=== PATIENT | female | born 1985 | race Caucasian/White ===

== ENCOUNTER 2017-04-20 19:26 | Emergency (ER) | payer OTHER ==
[2017-04-20 19:26] VITALS: BMI 24.1
[2017-04-20 19:50] VITALS: O2SAT 100
--- NOTE | 2017-04-20 20:34 | C.PDOC ---
History Of Present Illness The patient presents to the ED for evaluation of nausea, vomiting and diarrhea which began around 2 days ago. Patient also complains of generalized weakness. She denies fever and chills at this time. Time Seen by Provider: 04/20/17 20:33 Chief Complaint (Nursing): GI Problem History Per: Patient History/Exam Limitations: no limitations Onset/Duration Of Symptoms: Days (2) Current Symptoms Are (Timing): Still Present Severity: Mild Pain Scale Rating Of: 2 Radiation Of Pain To:: None Quality Of Discomfort: denies: "Pain" Associated Symptoms: Nausea, Vomiting, Diarrhea. denies: Fever, Chills Exacerbating Factors: None Alleviating Factors: None Last Bowel Movement: Today Additional History Per: Patient Abnormal Vaginal Bleeding: No Past Medical History Reviewed: Historical Data, Nursing Documentation, Vital Signs Vital Signs: Last Vital Signs Temp 98.2 F 04/20/17 19:46 Pulse 81 04/20/17 19:46 Resp 18 04/20/17 19:46 BP 120/78 04/20/17 19:46 Pulse Ox 100 04/20/17 21:31 - Medical History PMH: Asthma Surgical History: No Surg Hx - [facility] Procedures MONITORING NOS (01/15/14) MANUAL ASSIST DELIV NEC (01/15/14) Family History: States: Unknown Family Hx - Social History Hx Alcohol Use: No Hx Substance Use: Yes - Immunization History Hx Tetanus Toxoid Vaccination: No Hx Influenza Vaccination: No Hx Pneumococcal Vaccination: No Review Of Systems Constitutional: Positive for: Weakness. Negative for: Fever, Chills Cardiovascular: Negative for: Chest Pain, Palpitations Respiratory: Negative for: Cough, Shortness of Breath Gastrointestinal: Positive for: Nausea, Vomiting, Diarrhea. Negative for: Constipation Genitourinary: Negative for: Dysuria, Frequency, Hematuria Skin: Negative for: Rash, Lesions, Jaundice, Bruising Psych: Negative for: Anxiety Physical Exam - Physical Exam Appears: Non-toxic, No Acute Distress Skin: Normal Color, Warm, Dry Head: Normacephalic Oral Mucosa: Dry Neck: Supple Chest: Symmetrical, No Deformity, No Tenderness Cardiovascular: Rhythm Regular, No Murmur Respiratory: No Rales, No Rhonchi, No Wheezing Gastrointestinal/Abdominal: Soft, Tenderness (mid-epigastric ), No Guarding, No Rebound Extremity: Normal ROM, Capillary Refill (less than 2 seconds ) Neurological/Psych: Oriented x3 Gait: Steady ED Course And Treatment - Laboratory Results Result Diagrams: 04/20/17 20:50 04/20/17 20:50 O2 Sat by Pulse Oximetry: 100 (on RA) Pulse Ox Interpretation: Normal Progress Note: Bloodwork and UA ordered. Pepcid IVP, Toradol IVP, Zofran IVP, Rocephin IVP, and Lactated Ringers Solution IV administered. Reevaluation Time: 22:07 Reassessment Condition: Improved Disposition Counseled Patient/Family Regarding: Studies Performed, Diagnosis, Need For Followup, Rx Given - Disposition Referrals: Estefania Ceja MD [Staff Provider] - Disposition: HOME/ ROUTINE Disposition Time: 20:34 Condition: FAIR Prescriptions: Nitrofurantoin Macrocrystals [Macrobid] 1 cap PO BID #14 cap Ondansetron ODT [Zofran ODT] 1 odt PO BID PRN #6 odt PRN Reason: Nausea/Vomiting Instructions: Abdominal Pain (ED), Urinary Tract Infection in Women (DC), Acute Nausea and Vomiting (ED) Forms: [employer] (Romanian) - Clinical Impression Clinical Impression: Abdominal pain, UTI (urinary tract infection), Nausea & vomiting - Scribe Statement The provider has reviewed the documentation as recorded by the Scribe (Fabiola Roman) Provider Attestation: All medical record entries made by the Scribe were at my direction and personally dictated by me. I have reviewed the chart and agree that the record accurately reflects my personal performance of the history, physical exam, medical decision making, and the department course for this patient. I have also personally directed, reviewed, and agree with the discharge instructions and disposition.
[2017-04-20] MEDS ORDERED: Lactated Ringer's 1,000 ML IV ONE (20:36)
[2017-04-20 20:42] LABS: RBC URINE 14 /hpf (0-3); URINE BACTERIA FEW (<OCC); URINE BILIRUBIN NEGATIVE (NEGATIVE); URINE BLOOD 2+ (NEGATIVE); URINE CALCIUM OXALATE CRYSTALS OCC /hpf (<OCC); URINE COLOR Yellow (YELLOW); URINE GLUCOSE (UA) NORMAL (Normal); URINE KETONE 1+ mg/dL (NEGATIVE); URINE LEUKOCYTE ESTERASE 3+ Leu/uL (Negative); URINE PROTEIN NEGATIVE (NEGATIVE); WBC URINE 28 /hpf (0-5)
[2017-04-20] MEDS ORDERED: Lactated Ringer's 1,000 ML ONE (20:47)
[2017-04-20 20:53] LABS: BASO % 0.1 % (0.0-2.0); EOS # 0.1 K/uL (0.0-0.7); HEMATOCRIT 42.5 % (34.0-47.0); LYMPH # 1.5 K/uL (1.0-4.3); LYMPH % 16.3 % (20.0-40.0); MEAN CORPUSCULAR HEMOGLOBIN 29.2 pg (27.0-31.0); MEAN CORPUSCULAR HGB CONC 33.5 g/dL (33.0-37.0); MEAN PLATELET VOLUME 7.4 fL (7.2-11.7); MONO # 0.6 K/uL (0.0-0.8); NRBC % 0.1 % (0.0-2.0); RED CELL DISTRIBUTION WIDTH 13.3 % (11.5-14.5); WHITE BLOOD COUNT 9.2 K/uL (4.8-10.8)
[2017-04-20] MEDS ORDERED: cefTRIAXone IV 1 gm in Dextros 50 ML IVPB ONE (20:53)
[2017-04-20 21:06] LABS: ALB/GLOB RATIO 1.7 (1.0-2.1); ALKALINE PHOSPHATASE 58 U/L (38-126); ALT/SGPT 36 U/L (9-52); AST/SGOT 16 U/L (14-36); BILIRUBIN,TOTAL 0.6 mg/dL (0.2-1.3); BLOOD UREA NITROGEN 10 mg/dL (7-17); CALCIUM 8.5 mg/dl (8.6-10.4); CARBON DIOXIDE 29 mmol/L (22-30); CHLORIDE 100 mmol/L (98-107); GFR AFRICAN-AMERICAN > 60; GLUCOSE,RANDOM 115 mg/dL (65-105); POTASSIUM 3.7 mmol/L (3.6-5.2); SODIUM 136 mmol/L (132-148); TOTAL PROTEIN 6.3 g/dL (6.3-8.3)
[2017-04-20 22:33] VITALS: BP 116/75; PULSE 71; RESP 16; TEMP 98.9
== END 2017-04-20 22:32 | disposition home or self-care (01) ==
LOC: C.ER 19:26 → SUPCPDRO 19:26 → C.ER 22:32
DX: N39.0 Urinary tract infection, site not specified (principal); R10.13 Epigastric pain; R11.2 Nausea with vomiting, unspecified
CPT/HCPCS: 80053; 81001; 83690; 84703; 85025; 96361; 96365; 96375; 99285; J0696; J1885; J2405; J7120

== ENCOUNTER 2017-11-28 16:12 | Emergency (ER) | payer OTHER ==
[2017-11-28 16:27] VITALS: BMI 25.6
[2017-11-28 16:32] VITALS: BP 136/84; PULSE 92; TEMP 98.9; O2SAT 100
[2017-11-28 17:17] VITALS: RESP 18
--- NOTE | 2017-11-28 17:48 | C.PDOC ---
History Of Present Illness 32 year old female patient presents to the ER with left upper back pain that started yesterday. Patient states the pain feels sharp and denies pain radiating anywhere. Patient also denies SOB, trauma, and no other complaints. Chief Complaint (Nursing): Upper Extremity Problem/Injury History Per: Patient History/Exam Limitations: no limitations Onset/Duration Of Symptoms: Hrs Current Symptoms Are (Timing): Still Present Quality: Sharp Past Medical History Reviewed: Historical Data, Nursing Documentation, Vital Signs Vital Signs: Last Vital Signs Temp 98.9 F 11/28/17 16:27 Pulse 92 H 11/28/17 16:27 Resp 18 11/28/17 17:16 BP 136/84 11/28/17 16:27 Pulse Ox 100 11/28/17 17:57 - Medical History PMH: Asthma - [facility] Procedures MONITORING NOS (01/15/14) MANUAL ASSIST DELIV NEC (01/15/14) Family History: States: Unknown Family Hx - Social History Hx Alcohol Use: Yes Hx Substance Use: No (Former use of marijuana) - Immunization History Hx Tetanus Toxoid Vaccination: No Hx Influenza Vaccination: No Hx Pneumococcal Vaccination: No Review Of Systems Except As Marked, All Systems Reviewed And Found Negative. Constitutional: Negative for: Other (falling; trauma) Respiratory: Negative for: Shortness of Breath Physical Exam - Physical Exam Appears: Well, Non-toxic, No Acute Distress Skin: Normal Color, Warm, Dry Head: Atraumatic, Normacephalic Back: Other (upper back tenderness) Neurological/Psych: Oriented x3, Normal Speech Gait: Steady ED Course And Treatment O2 Sat by Pulse Oximetry: 100 (RA) Pulse Ox Interpretation: Normal Medical Decision Making Medical Decision Making: Impression: 32 year old patient with left upper back pain Plan: CXR CXR is negative Reassess: patient is in no distress. Patient is discharged. Disposition - Disposition Referrals: [facility] Naa Mcwilliams, [Non-Staff] - Disposition: HOME/ ROUTINE Disposition Time: 17:00 Condition: GOOD Additional Instructions: EDEN MONZON, thank you for letting us take care of you today. Your provider was Rico Max DO and you were treated for SHOULDER PAIN. The emergency medical care you received today was directed at your acute symptoms. If you were prescribed any medication, please fill it and take as directed. It may take several days for your symptoms to resolve. Return to the Emergency Department if your symptoms worsen, do not improve, or if you have any other problems. Please contact your doctor or call one of the physicians/clinics you have been referred to that are listed on the Patient Visit Information form that is included in your discharge packet. Bring any paperwork you were given at discharge with you along with any medications you are taking to your follow up visit. Our treatment cannot replace ongoing medical care by a primary care provider outside of the emergency department. Thank you for allowing the [facility] team to be part of your care today. Follow up with your primary care doctor in 2-3 days for re-evaluation and further management. Prescriptions: Cyclobenzaprine [Cyclobenzaprine HCl] 10 mg PO Q8 PRN #20 tab PRN Reason: Muscle Spasm Ibuprofen [Motrin] 600 mg PO Q6 PRN #20 tab PRN Reason: Pain, Moderate (4-7) Instructions: Muscle and Bone Pain (DC) Forms: [employer] (Japanese) - Clinical Impression Clinical Impression: Muscle strain - Scribe Statement The provider has reviewed the documentation as recorded by the Sholaibmi Mueller Do Provider Attestation: All medical record entries made by the Scribe were at my direction and personally dictated by me. I have reviewed the chart and agree that the record accurately reflects my personal performance of the history, physical exam, medical decision making, and the department course for this patient. I have also personally directed, reviewed, and agree with the discharge instructions and disposition.
--- NOTE | 2017-11-28 18:34 | RAD ---
Chest x-ray two views History: Evaluate for infiltrate. Comparison: None available. Findings: Mild venous congestion. Heart size within normal limits. Bibasilar breast and nipple shadows. Impression: Mild venous congestion.
== END 2017-11-28 17:17 | disposition home or self-care (01) ==
LOC: C.ER 16:12
DX: S29.012A Strain of muscle and tendon of back wall of thorax, initial encounter (principal); X58.XXXA Exposure to other specified factors, initial encounter

== ENCOUNTER 2017-12-07 13:41 | Emergency (ER) | payer OTHER ==
[2017-12-07 13:42] VITALS: BMI 25.6
[2017-12-07 13:53] VITALS: O2SAT 98
[2017-12-07] MEDS ORDERED: Albuterol-Ipratrop 3 mg / 0.5 (3 ml) UD ONE ×2 (14:13→16:26)
[2017-12-07] MEDS ORDERED: Albuterol 0.083% Inhal Sol (2.5 mg/3 mL) UD IH STA ×3 (14:15→15:22)
--- NOTE | 2017-12-07 14:33 | RAD ---
HISTORY: COMPARISON: 11/28/2017. TECHNIQUE: Chest PA and lateral FINDINGS: LINES AND TUBES: None. LUNG AND PLEURA: The lungs are well inflated and clear. No pleural effusion or pneumothorax. HEART AND MEDIASTINUM: The heart is not enlarged. The hilar and mediastinal contours are within normal limits. SKELETAL STRUCTURES: The bony structures are within normal limits for the patient's age. VISUALIZED UPPER ABDOMEN: Normal. OTHER FINDINGS: None. IMPRESSION: No active pulmonary disease.
[2017-12-07] MEDS ORDERED: Albuterol 0.083% Inhal Sol (2.5 mg/3 mL) UD ONE ×2 (14:40→16:26)
[2017-12-07] MEDS ORDERED: Albuterol-Ipratrop 3 mg / 0.5 (3 ml) UD INH ONE (14:48)
--- NOTE | 2017-12-07 15:30 | C.PDOC ---
History Of Present Illness 32-year-old female with PMHx includes asthma, presents to the emergency department complaining of non-productive cough, shortness of breath, and wheezing for the past several days, associated with pleuritic chest pain. Patient was seen by her PMD Dr. Ceja several days ago, was given Azithromycin and Promethazine with Codeine. She states her symptoms have not improved. Patient denies fever, palpitations, nausea/vomiting, abdominal pain, rash, ear pain, sore throat, or any other associated symptoms. Patient denies h/o intubations. Time Seen by Provider: 12/07/17 14:01 Chief Complaint (Nursing): Chest Pain History Per: Patient History/Exam Limitations: no limitations Onset/Duration Of Symptoms: Days Current Symptoms Are (Timing): Still Present Severity: Moderate Past Medical History Reviewed: Historical Data, Nursing Documentation, Vital Signs Vital Signs: Last Vital Signs Temp 98.1 F 12/07/17 16:23 Pulse 99 H 12/07/17 16:23 Resp 18 12/07/17 16:23 BP 127/71 12/07/17 16:23 Pulse Ox 98 12/07/17 16:25 - Medical History PMH: Asthma - [facility] Procedures MONITORING NOS (01/15/14) MANUAL ASSIST DELIV NEC (01/15/14) Family History: States: No Known Family Hx - Social History Hx Alcohol Use: No Hx Substance Use: No (Former use of marijuana) - Immunization History Hx Tetanus Toxoid Vaccination: Yes Hx Influenza Vaccination: No Hx Pneumococcal Vaccination: No Review Of Systems Constitutional: Negative for: Fever, Chills Cardiovascular: Negative for: Chest Pain, Palpitations Respiratory: Positive for: Cough, Shortness of Breath, Pleuritic Pain, Wheezing Gastrointestinal: Negative for: Nausea, Vomiting, Abdominal Pain Genitourinary: Negative for: Dysuria, Hematuria Musculoskeletal: Negative for: Back Pain Skin: Negative for: Rash Physical Exam - Physical Exam Appears: Well, Non-toxic, Other (speaking 3-4 words, in mild respiratory distress ) Skin: Normal Color, Warm, Dry, No Rash Head: Normacephalic Eye(s): bilateral: Normal Inspection Nose: Normal Oral Mucosa: Moist Lips: Normal Appearing Throat: Normal, No Erythema, No Exudate, No Drooling Cardiovascular: Rhythm Regular (Tachycardic), No Murmur Respiratory: No Accessory Muscle Use, No Rales, No Rhonchi, Wheezing ( Expiratory wheezing B/L ) Gastrointestinal/Abdominal: Normal Exam, Bowel Sounds, Soft, No Tenderness Extremity: Normal ROM, No Pedal Edema, No Calf Tenderness Neurological/Psych: Oriented x3 ED Course And Treatment ECG: Interpreted By Me, Viewed By Me (sinus tachycardia 106 bpm, normal axis, no acute ST/T wave changes) ECG Interpretation: Abnormal (tachycardic ) O2 Sat by Pulse Oximetry: 98 (RA) Pulse Ox Interpretation: Normal - Radiology CXR: Interpreted by Me, Viewed By Me CXR Interpretation: Yes: No Acute Disease. No: Infiltrates Progress Note: CXR ordered and reviewed. Patient given PO Prednisone and multiple albuterol neb treatments. Reevaluation Time: 16:45 Reassessment Condition: Improved (On reassessment, patient states she feels much better. On exam, she has good air entry B/L without wheezing or accessory muscle use. CXR (-) for infiltrates. Patient given Rxs albuterol inhaler, prednisone, and she was instructed to follow up with PMD in 1-2 days. She understands she should return to ED if symptoms worsen.) Critical Care Time - Critical Care Note Total Time (in mins): 40 Documented critical care: time excludes all time spent performing seperately billable procedures. Disposition Counseled Patient/Family Regarding: Studies Performed, Diagnosis, Need For Followup, Rx Given - Disposition Referrals: Estefania Ceja MD [Staff Provider] - Disposition: HOME/ ROUTINE Disposition Time: 16:50 Condition: STABLE Additional Instructions: FOLLOW UP WITH YOUR DOCTOR IN 1-2 DAYS USE MEDICATIONS DIRECTED RETURN TO ER IF SYMPTOMS WORSEN Prescriptions: Albuterol HFA [Ventolin HFA 90 mcg/actuation (8 g)] 0.09 mg IH Q4 PRN #1 puff PRN Reason: Wheezing predniSONE [predniSONE Tab] 40 mg PO DAILY #8 tab Instructions: Asthma, Adult (DC) Forms: [facility] (Mongolian) Print Language: BELARUSIAN - Clinical Impression Clinical Impression: Asthma exacerbation - Scribe Statement The provider has reviewed the documentation as recorded by the Scribe (Gm Nelson) All medical record entries made by the Scribe were at my direction and personally dictated by me. I have reviewed the chart and agree that the record accurately reflects my personal performance of the history, physical exam, medical decision making, and the department course for this patient. I have also personally directed, reviewed, and agree with the discharge instructions and disposition.
[2017-12-07] MEDS ORDERED: Albuterol-Ipratrop 3 mg / 0.5 (3 ml) UD INH STA (15:55)
[2017-12-07 16:24] VITALS: BP 127/71; PULSE 99; RESP 18; TEMP 98.1
--- NOTE | 2017-12-07 20:44 | CARD ---
APPROVED REPORT Date of service: 12/07/2017 EKG Measurement Heart [id number] <Conclusion> Sinus tachycardia Possible Left atrial enlargement Borderline ECG
== END 2017-12-07 16:55 | disposition home or self-care (01) ==
LOC: C.ER 13:41
DX: J45.901 Unspecified asthma with (acute) exacerbation (principal)

== ENCOUNTER 2018-09-14 15:47 | Emergency (ER) | payer OTHER ==
[2018-09-14 15:48] VITALS: BMI 25.6
[2018-09-14 15:52] VITALS: RESP 20; O2SAT 100
--- NOTE | 2018-09-14 17:27 | C.PDOC ---
History Of Present Illness 33 y/o female c/o lower abdominal pain since Wednesday, constant. pt unable to describe pain, is associated with vaginal bleeding. lmp 4/4. pt reports unprotected sex about one month ago, some whitish, not malodorous. denies fever. chills, nausea, vomiting. appetite is good. pt sts she doesn 't think this is her menses since it is earlier than usual. pt reports bleeding was about amount of regular period on Wednesday and just using panty liners since then. Time Seen by Provider: 09/14/18 16:06 Chief Complaint (Nursing): Abdominal Pain History Per: Patient History/Exam Limitations: no limitations Onset/Duration Of Symptoms: Days (4) Current Symptoms Are (Timing): Still Present Pain Scale Rating Of: 4 Location Of Pain/Discomfort: Other (lower abdomen) Radiation Of Pain To:: None Quality Of Discomfort: Unable To Describe Associated Symptoms: Other (vaginal bleeding). denies: Fever, Chills, Nausea, Vomiting, Diarrhea, Loss Of Appetite Exacerbating Factors: None Alleviating Factors: None Recent travel outside of the [place]: No Past Medical History Reviewed: Historical Data, Nursing Documentation, Vital Signs Vital Signs: Last Vital Signs Temp 98.5 F 09/14/18 15:50 Pulse 87 09/14/18 15:50 Resp 20 09/14/18 15:50 BP 124/79 09/14/18 15:50 Pulse Ox 100 09/14/18 15:50 Primary Care Provider: Estefania Ceja - Medical History PMH: Asthma - [facility] Procedures MONITORING NOS (01/15/14) MANUAL ASSIST DELIV NEC (01/15/14) Family History: States: Unknown Family Hx - Social History Hx Tobacco Use: Yes Hx Alcohol Use: No Hx Substance Use: No (Former use of marijuana) - Immunization History Hx Tetanus Toxoid Vaccination: Yes Hx Influenza Vaccination: No Hx Pneumococcal Vaccination: No Review Of Systems Constitutional: Negative for: Fever, Chills Cardiovascular: Negative for: Chest Pain Respiratory: Negative for: Cough, Shortness of Breath Gastrointestinal: Positive for: Abdominal Pain. Negative for: Nausea, Vomiting, Diarrhea Genitourinary: Positive for: Vaginal Bleeding. Negative for: Vaginal Discharge, Pelvic Pain Musculoskeletal: Negative for: Back Pain Skin: Negative for: Rash Neurological: Negative for: Weakness, Numbness Physical Exam - Physical Exam Appears: Non-toxic, No Acute Distress, Other (lying comfortably on stretcher, using phone) Skin: Warm, Dry Head: Atraumatic, Normacephalic Eye(s): bilateral: Normal Inspection Oral Mucosa: Moist Neck: Supple Chest: No Tenderness Cardiovascular: Rhythm Regular, No Murmur Respiratory: Decreased Breath Sounds (mild at bilateral bases), No Rales, No Rhonchi, No Wheezing Gastrointestinal/Abdominal: Bowel Sounds, No Soft, No Tenderness, No Distention, No Guarding, No Rebound Back: No CVA Tenderness Extremity: Normal ROM, No Tenderness ED Course And Treatment - Laboratory Results Result Diagrams: 09/14/18 18:38 09/14/18 17:50 O2 Sat by Pulse Oximetry: 100 Medical Decision Making Medical Decision Making: pt with vaginal bleeding, c/o ab pain, non tender on exam, lying on stretcher, in no acute distress. ua neg, no blood in urine. chemistry normal. await cbc, d/c home with assistant professor of biology f/u, no unprotected sex recommended, advise pt and partner go for full sti testing. Disposition Counseled Patient/Family Regarding: Studies Performed, Diagnosis, Need For Followup - Disposition Referrals: Estefania Ceja MD [Staff Provider] - Disposition: HOME/ ROUTINE Disposition Time: 18:59 Condition: GOOD Additional Instructions: Please follow up with Dr Ceja and recommend follow up with it technical specialist. Recommend you and your partner follow up in clinic and get full STI testing befroe any unprotected sex. Return to ER for any worse pain. If any abnormality on your urine test for STI, you will be called. Forms: General Discharge Instructions, [facility] (Sammarinese), Work Excuse - Clinical Impression Clinical Impression: Vaginal bleeding, Abdominal pain
[2018-09-14 18:06] LABS: HCG,QUALITATIVE URINE NEGATIVE (NEGATIVE)
[2018-09-14 18:07] LABS: BLOOD UREA NITROGEN 11 mg/dL (7-17); GFR NON-AFRICAN AMERICAN > 60
[2018-09-14 18:11] LABS: SQUAMOUS EPITHIAL 1 /hpf (0-5); URINE AMORPHOUS SEDIMENT RARE /ul (<OCC); URINE BACTERIA RARE (<OCC); URINE BILIRUBIN NEGATIVE (NEGATIVE); URINE BLOOD NEGATIVE (NEGATIVE); URINE CLARITY Hazy (Clear); URINE COLOR Yellow (YELLOW); URINE GLUCOSE (UA) NORMAL (Normal); URINE LEUKOCYTE ESTERASE NEG Leu/uL (Negative); URINE PROTEIN NEGATIVE (NEGATIVE); URINE UROBILINOGEN NORMAL mg/dL (0.2-1.0)
[2018-09-14 18:12] LABS: ALB/GLOB RATIO 1.7 (1.0-2.1); ALBUMIN 4.6 g/dL (3.5-5.0); ALT/SGPT < 6 U/L (9-52); AST/SGOT 28 U/L (14-36)
[2018-09-14 18:46] LABS: BASO % 0.4 % (0.0-2.0); EOS # 0.1 K/uL (0.0-0.7); EOS % 1.1 % (0.0-4.0); HEMOGLOBIN 14.3 g/dL (11.0-16.0); LYMPH % 28.1 % (20.0-40.0); MEAN CELL VOLUME 86.9 fL (81.0-99.0); MEAN CORPUSCULAR HEMOGLOBIN 29.8 pg (27.0-31.0); MEAN CORPUSCULAR HGB CONC 34.3 g/dL (33.0-37.0); MEAN PLATELET VOLUME 7.4 fL (7.2-11.7); MONO # 0.8 K/uL (0.0-0.8); MONO % 7.7 % (0.0-10.0); NEUT # 6.7 K/uL (1.8-7.0); NEUT % 62.7 % (50.0-75.0); RBC 4.8 Mil/uL (3.80-5.20); RED CELL DISTRIBUTION WIDTH 13.1 % (11.5-14.5); WHITE BLOOD COUNT 10.6 K/uL (4.8-10.8)
[2018-09-14 19:30] VITALS: BP 119/80; PULSE 79; TEMP 99
== END 2018-09-14 19:41 | disposition home or self-care (01) ==
LOC: C.ER 15:47
DX: R10.30 Lower abdominal pain, unspecified (principal); N93.9 Abnormal uterine and vaginal bleeding, unspecified